=== PATIENT | male | born 1975 | race Caucasian/White ===

== ENCOUNTER → 2021-03-24 | Outpatient (CLI) | payer OTHER ==
--- NOTE | 2021-03-24 12:14 | 2DMMODE ---
[place] [address] 2 D/M-MODE ECHOCARDIOGRAM Name: SALOME COLEMAN Room: [facility]#: [id number] Admission: 03/24/21 Attend Phys: Physician not on s Discharge: Date of : 77 Date of Service: 03/24/21 1214 Report #: [id number] THIS REPORT FOR: cc: Physician not on staff Physician not on staff Poli Awan MD [facility] ~ APPROVED REPORT Study performed: 03/24/2021 10:30:41 EXAM: Comprehensive 2D, Doppler, and color-flow Echocardiogram BSA: 2.01 HR: 110 bpm BP: 170/108 mmHg Other Information Study Quality: Good Indications Tachycardia 2D Dimensions IVSd: 10.83 (7-11mm) LVOT Diam: 16.47 (18-24mm) LVDd: 44.99 mm PWd: 10.83 (7-11mm) Ascending Ao: 29.46 (22-36mm) LVDs: 36.77 (25-40mm) Aortic Root: 28.50 mm Volumes Left Atrial Volume (Systole) LA ESV Index: 20.50 mL/m2 Aortic Valve AoV Peak Jose C.: 1.11 m/s AO Peak Gr.: 4.96 mmHg LVOT Max P.04 mmHg AO Mean Gr.: 3.18 mmHg LVOT Mean P.00 mmHg LVOT Max V: 1.01 m/s AO V2 VTI: 19.13 cm LVOT Mean V: 0.66 m/s KEN (VTI): 1.68 cm2 LVOT V1 VTI: 15.07 cm Mitral Valve E/A Ratio: 2.76 MV Decel. Time: 71.35 [place] [address] 2 D/M-MODE ECHOCARDIOGRAM Name: SALOME COLEMAN [id number] Admission: 03/24/21 Attend Phys: Physician not on s Discharge: Date of : 77 Date of Service: 03/24/21 1214 Report #: [id number] MV E Max Jose C.: 0.78 m/s MV PHT: 20.69 ms MVA (PHT): 10.63 cm2 TDI E/Lateral E': 7.80 E/Medial E': 6.00 Medial E' Jose C.: 0.13 m/s Lateral E' Jose C.: 0.10 m/s Pulmonary Valve PV Peak Jose C.: 1.05 m/s PV Peak Gr.: 4.40 mmHg Tricuspid Valve RAP Estimate: 5.00 mmHg TR Peak Gr.: 25.93 mmHg RVSP: 30.93 mmHg PA Pressure: 30.93 mmHg Left Ventricle The left ventricle is normal size. There is normal LV segmental wall motion. There is normal left ventricular wall thickness. Left ventricular systolic function is borderline. LVEF is 50-55%. Right Ventricle The right ventricle is normal size. The right ventricular systolic function is normal. Atria The left atrium size is normal. The right atrium size is normal. Aortic Valve The aortic valve is normal in structure. No aortic regurgitation is present. There is no aortic valvular stenosis. Mitral Valve The mitral valve is normal in structure. Trace mitral regurgitation. No evidence of mitral valve stenosis. Tricuspid Valve The tricuspid valve is normal in structure. Mild tricuspid regurgitation. Pulmonic Valve The pulmonary valve is normal in structure. There is no pulmonic [place] [address] 2 D/M-MODE ECHOCARDIOGRAM Name: SALOME COLEMAN Room: [facility]#: [id number] Admission: 03/24/21 Attend Phys: Physician not on s Discharge: Date of : 77 Date of Service: 03/24/21 1214 Report #: [id number] Great Vessels The aortic root is normal in size. IVC is normal in size and collapses >50% with inspiration. Pericardium There is no pericardial effusion. <Conclusion> The left ventricle is normal size. There is normal left ventricular wall thickness. Left ventricular systolic function is borderline. LVEF is 50-55%. The right ventricle is normal size. The left atrium size is normal. The aortic valve is normal in structure. The mitral valve is normal in structure. Trace mitral regurgitation. The tricuspid valve is normal in structure. Mild tricuspid regurgitation. IVC is normal in size and collapses >50% with inspiration. There is no pericardial effusion. There is normal LV segmental wall motion. <ELECTRONICALLY SIGNED> By: Poli Awan MD, FACC 03/24/21 121 13 13 Poli Awan MD, FACC /INF
== END ==
LOC: M.CRD 07:37
DX: I07.1 Rheumatic tricuspid insufficiency (principal); R00.2 Palpitations; R00.0 Tachycardia, unspecified